=== PATIENT | female | born 1950 | race Caucasian/White ===

== ENCOUNTER → 2024-01-20 08:19 | Outpatient (REF) | payer MEDICARE, BC, SELFPAY | LOC: RCS 08:19 | PROVIDERS: ATTENDING PHYSICIAN Internal Medicine Cardiovascular Disease; FAMILY PHYSICIAN Family Medicine | DX: R00.2 Palpitations (principal) | CPT/HCPCS: 93225; 93226 ==

== ENCOUNTER → 2024-07-15 12:11 | Outpatient (REF) | payer MEDICARE, BC, SELFPAY | LOC: WDC 12:11 | PROVIDERS: ATTENDING PHYSICIAN Family Medicine | DX: Z12.31 Encounter for screening mammogram for malignant neoplasm of breast (principal); Z12.39 Encounter for other screening for malignant neoplasm of breast | CPT/HCPCS: 77063; 77067 ==

== ENCOUNTER → 2024-08-04 06:37 | Outpatient (REF) | payer MEDICARE, BC, SELFPAY | LOC: MRI 3T 06:37 | PROVIDERS: ATTENDING PHYSICIAN Psychiatry & Neurology Neuromuscular Medicine; FAMILY PHYSICIAN Family Medicine; REFERRING PHYSICIAN Physician Assistant | DX: I67.1 Cerebral aneurysm, nonruptured (principal) | CPT/HCPCS: 70544; 70547 ==

== ENCOUNTER → 2024-09-22 13:09 | Outpatient (REF) | payer MEDICARE, BC, SELFPAY | LOC: RAD 13:09 | PROVIDERS: ATTENDING PHYSICIAN Family Medicine | DX: R19.7 Diarrhea, unspecified (principal); R68.83 Chills (without fever); R10.84 Generalized abdominal pain | CPT/HCPCS: 74177; Q9967 ==

== ENCOUNTER → 2024-11-06 07:57 | Outpatient (REF) | payer MEDICARE, BC, SELFPAY | LOC: RCS 07:57 | PROVIDERS: ATTENDING PHYSICIAN Internal Medicine Cardiovascular Disease; FAMILY PHYSICIAN Family Medicine | DX: R00.2 Palpitations (principal) | CPT/HCPCS: 93225; 93226 ==

== ENCOUNTER → 2024-11-25 09:54 | Outpatient (REF) | payer MEDICARE, BC, SELFPAY | LOC: HWRCS 09:54 | PROVIDERS: ATTENDING PHYSICIAN Internal Medicine Cardiovascular Disease; FAMILY PHYSICIAN Family Medicine | DX: R00.2 Palpitations (principal); I49.3 Ventricular premature depolarization; I49.1 Atrial premature depolarization | CPT/HCPCS: 93306 ==

== ENCOUNTER → 2025-02-15 10:42 | Outpatient (REF) | payer MEDICARE, BC, SELFPAY | LOC: RAD 10:42 | PROVIDERS: ATTENDING PHYSICIAN Otolaryngology; FAMILY PHYSICIAN Family Medicine | DX: R05.3 Chronic cough (principal); E04.1 Nontoxic single thyroid nodule | CPT/HCPCS: 71046 ==

== ENCOUNTER → 2025-03-22 11:17 | Outpatient (REF) | payer MEDICARE, BC, SELFPAY | LOC: RAD 11:17 | PROVIDERS: ATTENDING PHYSICIAN Otolaryngology; FAMILY PHYSICIAN Family Medicine | DX: E04.1 Nontoxic single thyroid nodule (principal) | CPT/HCPCS: 76536 ==

== ENCOUNTER → 2025-07-21 08:29 | Outpatient (REF) | payer MEDICARE, BC, SELFPAY | LOC: EMG 08:29 | PROVIDERS: ATTENDING PHYSICIAN Orthopaedic Surgery Hand Surgery; FAMILY PHYSICIAN Family Medicine | DX: M79.642 Pain in left hand (principal); M79.641 Pain in right hand; R20.0 Anesthesia of skin; G56.03 Carpal tunnel syndrome, bilateral upper limbs | CPT/HCPCS: 95886; 95911 ==

== ENCOUNTER → 2025-08-02 14:03 | Outpatient (REF) | payer MEDICARE, BC, SELFPAY | LOC: DHSLP 14:03 | PROVIDERS: ATTENDING PHYSICIAN Internal Medicine; FAMILY PHYSICIAN Family Medicine | DX: G47.33 Obstructive sleep apnea (adult) (pediatric) (principal) | CPT/HCPCS: 95800 ==

== ENCOUNTER → 2025-08-23 12:09 | Outpatient (REF) | payer MEDICARE, BC, SELFPAY | LOC: RCS 12:09 | PROVIDERS: ATTENDING PHYSICIAN Orthopaedic Surgery Hand Surgery; FAMILY PHYSICIAN Family Medicine | DX: Z01.818 Encounter for other preprocedural examination (principal) | CPT/HCPCS: 93005 ==